=== PATIENT | female | born 1985 | race Caucasian/White ===

== ENCOUNTER → 2025-03-29 13:53 | Outpatient (REF) | payer OTHER, SELFPAY | LOC: WDC 13:53 | PROVIDERS: ATTENDING PHYSICIAN Family Medicine | DX: Z12.31 Encounter for screening mammogram for malignant neoplasm of breast (principal) | CPT/HCPCS: 77063; 77067 ==

== ENCOUNTER → 2025-05-03 09:27 | Outpatient (REF) | payer OTHER, SELFPAY | LOC: WDC 09:27 | PROVIDERS: ATTENDING PHYSICIAN Family Medicine | DX: R92.8 Other abnormal and inconclusive findings on diagnostic imaging of breast (principal) | CPT/HCPCS: 76642 ==

== ENCOUNTER → 2025-07-26 10:34 | Outpatient (REF) | payer OTHER, SELFPAY | LOC: EMG 10:34 | PROVIDERS: ATTENDING PHYSICIAN Family Medicine | DX: R25.2 Cramp and spasm (principal) | CPT/HCPCS: 95886; 95911 ==

== ENCOUNTER → 2025-09-13 09:12 | Outpatient (REF) | payer OTHER, SELFPAY | LOC: HWRCS 09:12 | PROVIDERS: ATTENDING PHYSICIAN Internal Medicine Cardiovascular Disease; FAMILY PHYSICIAN Family Medicine | DX: Q23.1 Congenital insufficiency of aortic valve (principal); I77.810 Thoracic aortic ectasia | CPT/HCPCS: 93306 ==